=== PATIENT | female | born 1990 | race Caucasian/White ===

== ENCOUNTER 2017-01-03 13:31 | Emergency (ER) | payer BC ==
[2017-01-03 14:04] VITALS: TEMP 97.7
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
[2017-01-03 15:15] VITALS: BP 120/89; PULSE 65; RESP 14; O2SAT 98
== END 2017-01-03 16:26 | disposition home or self-care (01) ==
DX: S52.124A Nondisplaced fracture of head of right radius, initial encounter for closed fracture (principal); V18.2XXA Unspecified pedal cyclist injured in noncollision transport accident in nontraffic accident, initial encounter
CPT/HCPCS: A4565